=== PATIENT | male | born 1960 | race Caucasian/White ===

== ENCOUNTER 2019-08-03 06:42 | Inpatient (IN) ==
[2019-07-24 15:59] LABS: Appearance,Urine CLEAR; Bilirubin,Urine NEG (NEG); Color,Urine YELLOW; Glucose,Urine (UA) NEGATIVE (NEG); Ketones,Urine NEG (NEG); Leukocyte Esterase,Urine NEG /uL (NEG); Nitrate,Urine NEG (NEG); Protein,Urine NEG (NEG); Specific Gravity,Urine 1.023 (1.000-1.035); Urine Blood NEG mg/dL (<0.03); Urobilinogen,Urine NEG (NEG)
[2019-07-24 16:20] LABS: Basophils # (Auto) 0 K/mcL (0.0-0.3); Basophils % (Auto) 0.5 % (0.0-2.0); Eosinophils # (Auto) 0.1 K/mcL (0.0-0.7); Eosinophils % (Auto) 1.8 % (0.0-7.0); Granulocytes % (Auto) 66.1 % (38.0-78.0); Hematocrit 39.7 % (41.0-55.0); Hemoglobin 13.6 g/dL (13.5-16.5); Lymphocytes # (Auto) 1.6 K/mcL (1.5-4.8); Lymphocytes % (Auto) 23.1 % (15.5-49.0); Mean Cell Volume 95.7 fL (80.0-100.0); Mean Corpuscular HGB Conc 34.2 g/dL (31.0-36.0); Mean Platelet Volume 8.7 fL (7.4-10.4); Monocytes # (Auto) 0.6 K/mcL (0.1-0.9); Monocytes % (Auto) 8.5 % (1.0-12.0); Platelet Count 239 K/mcL (140-440); RBC 4.15 M/mcL (4.50-5.90); Red Cell Distribution Width 13.7 % (11.5-14.5); WBC 7.1 K/mcL (4.5-11.0)
[2019-07-24 16:27] LABS: Prothrombin Time 13.1 sec (11.9-14.5)
[2019-07-24 16:35] LABS: Blood Urea Nitrogen 17 mg/dl (6-20); Calcium 8.9 mg/dl (8.6-10.4); Carbon Dioxide 24 mmol/L (22-30); Chloride 105 mmol/L (96-108); Glomerular Filtration Rate 73; Glucose 104 mg/dL (70-105)
[~2019-08-03 06:42] MED LIST: 0.9 % SODIUM CHLORIDE 9 ML, KETOROLAC 30 MG, ROPIVACAINE HCL/PF 49.5 ML, EPINEPHrine 0.... IJ SCH; ACETAMINOPHEN 500 MG TABLET PO SCH; CELECOXIB 200 MG CAPSULE PO SCH; IPRATROPIUM/ALBUTEROL 3 ML AMPUL.NEB NEB PRN; PREGABALIN 75 MG CAPSULE PO SCH; SCOPOLAMINE 1 PATCH PATCH TOPICAL PRN; ceFAZolin 3 GM in DEXTROSE 5% IN WATER 50 ML IV SCH; oxyCODONE 10 MG TAB.ER.12H PO SCH
[2019-08-03] MEDS ORDERED: GENTAMICIN SULFATE 800 MG/20 ML VIAL IR ONE (08:42)
[2019-08-03] MEDS ORDERED: ONDANSETRON 4 MG/2 ML VIAL IV ONE (10:15)
[2019-08-03] MEDS ORDERED: ROPIVACAINE HCL/PF 20 ML VIAL IJ ONE (10:15)
[2019-08-03] MEDS ORDERED: MIDAZOLAM 5 MG/5 ML VIAL IV ONE (10:15)
[2019-08-03] MEDS ORDERED: LIDOCAINE HCL/PF 100 MG/5 ML SYRINGE IV ONE (10:15)
[2019-08-03] MEDS ORDERED: KETAMINE 100 MG/ML ML IV ONE (10:15)
[2019-08-03] MEDS ORDERED: GLYCOPYRROLATE 0.2 MG/ML VIAL IV ONE (10:15)
[2019-08-03] MEDS ORDERED: DEXAMETHASONE 10 MG/ML VIAL IV ONE (10:15)
[2019-08-03] MEDS ORDERED: fentaNYL 250 MCG/5 ML VIAL IV ONE (10:15)
[2019-08-03] MEDS ORDERED: PROPOFOL 200 MG/20 ML VIAL IV ONE (10:15)
[2019-08-03] MEDS ORDERED: TRANEXAMIC ACID 1,000 MG/10 ML VIAL IV ONE (10:15)
[2019-08-03] MEDS ORDERED: ATROPINE SULFATE 0.4 MG/ML VIAL IV PRN (11:18)
[2019-08-03] MEDS ORDERED: FLUMAZENIL 0.1 MG/ML ML IV PRN (11:18)
[2019-08-03] MEDS ORDERED: MEPERIDINE 25 MG/ML SYRINGE IV PRN (11:18)
[2019-08-03] MEDS ORDERED: METHOCARBAMOL 1,000 MG/10 ML VIAL IV PRN (11:18)
[2019-08-03] MEDS ORDERED: diphenhydrAMINE 50 MG/ML VIAL IV PRN (11:18)
[2019-08-03] MEDS ORDERED: ONDANSETRON 4 MG/2 ML VIAL IV PRN ×2 (11:18→11:44)
[2019-08-03] MEDS ORDERED: ePHEDrine 50 MG/ML AMPUL IV PRN (11:18)
[2019-08-03] MEDS ORDERED: METOPROLOL TARTRATE 5 MG/5 ML VIAL IV PRN (11:18)
[2019-08-03] MEDS ORDERED: NALOXONE HCL 0.4 MG/ML VIAL IV PRN (11:18)
[2019-08-03] MEDS ORDERED: IPRATROPIUM/ALBUTEROL 3 ML AMPUL.NEB NEB PRN (11:18)
[2019-08-03] MEDS ORDERED: HYDROmorphone 2 MG/ML VIAL IV PRN (11:18)
[2019-08-03] MEDS ORDERED: LACTATED RINGERS 1,000 ML IV SCH (11:30)
--- NOTE | 2019-08-03 11:43 | Brief Operative Note ---
Date of procedure: 08/03/19 Pre-op diagnosis: Right knee djd severe Post-op diagnosis: same Procedure: Right knee tka with shalom robot Grafts/Implants: Yes Anesthesia: NELSON Surgeon: Henry Ponce Orthodontic Technician: Salazar Gu Estimated blood loss (cc): 50 Tourniquet Time (Minutes): 45 Specimens Removed/Pathology: none sent Condition: stable Disposition: PACU
[2019-08-03] MEDS ORDERED: BENZOCAINE/MENTHOL 1 LOZENGE PO PRN (11:44)
[2019-08-03] MEDS ORDERED: BISACODYL 10 MG SUPP.RECT PR PRN (11:44)
[2019-08-03] MEDS ORDERED: FLEETS ADULT ENEMA PR PRN (11:44)
[2019-08-03] MEDS ORDERED: TRANEXAMIC ACID 1,000 MG/10 ML VIAL IV SCH (11:44)
[2019-08-03] MEDS ORDERED: ACETAMINOPHEN 325 MG TABLET PO PRN (11:44)
[2019-08-03] MEDS ORDERED: MAGNESIUM HYDROXIDE 30 ML ORAL.SUSP PO PRN (11:44)
[2019-08-03] MEDS ORDERED: POLYETHYLENE GLYCOL 3350 17 GM PACKET PO PRN (11:44)
[2019-08-03] MEDS ORDERED: 0.45 % SODIUM CHLORIDE 1,000 ML IV SCH (11:45)
[2019-08-03] MEDS ORDERED: ACETAMINOPHEN 500 MG TABLET PO PRN (11:46)
[2019-08-03] MEDS ORDERED: IBUPROFEN 200 MG TABLET PO PRN (11:46)
[2019-08-03] MEDS: fentaNYL 100 MCG/2 ML VIAL IV PRN ×4 (12:16→12:38)
[2019-08-03] MEDS: KETOROLAC 15 MG/ML VIAL IV SCH ×2 (13:14→18:06)
[2019-08-03] MEDS: 0.9 % SODIUM CHLORIDE 10 ML SYRINGE IV SCH ×2 (13:15→20:42)
--- NOTE | 2019-08-03 13:43 | XRay Report ---
CLINICAL INFORMATION: Post-Op Total Knee COMPARISON: None. FINDINGS: Total knee prostheses is anatomically aligned. No osseous abnormality. Periarticular gas and soft tissue swelling is seen as expected IMPRESSION: Negative Interpreted and Authenticated by: Romero Davila 08/03/19
[2019-08-03] MEDS: LACTATED RINGERS 1,000 ML IV SCH ×2 (15:19→22:02)
[2019-08-03] MEDS: HYDROcodone/APAP 10/325MG TABLET PO PRN ×4 (15:34→21:48)
[2019-08-03] MEDS: ceFAZolin 1 GM VIAL IV SCH (17:35)
[2019-08-03] MEDS: DOCUSATE SODIUM 100 MG CAPSULE PO SCH (20:41)
[2019-08-03] MEDS: ASPIRIN 325 MG ENTERIC COATED TABLET PO SCH (20:41)
[2019-08-03] MEDS: SENNOSIDES 1 TABLET PO SCH (20:41)
[2019-08-04] MEDS: KETOROLAC 15 MG/ML VIAL IV SCH ×5 (00:07→23:43)
[2019-08-04] MEDS: HYDROmorphone 2 MG/ML VIAL IV PRN ×2 (00:18→23:41)
[2019-08-04] MEDS: TEMAZEPAM 15 MG CAPSULE PO PRN ×2 (00:19→21:22)
[2019-08-04] MEDS: HYDROcodone/APAP 10/325MG TABLET PO PRN ×5 (02:11→21:21)
[2019-08-04] MEDS: ceFAZolin 1 GM VIAL IV SCH (02:11)
[2019-08-04] MEDS: 0.9 % SODIUM CHLORIDE 10 ML SYRINGE IV SCH ×3 (06:07→22:54)
--- NOTE | 2019-08-04 07:32 | Orthopedic Progress Note ---
Subjective Patient information: Note initiated : 08/04/19 at 7:31 am Service Date, if different from initiated Date: [] Patient: Mynor Ahumada 59 y/o M admitted on 08/03/19 for Right Total Knee Arthroplasty Nahid. Chief Complaint: [Pt is stable this morning on post operative day 1 without any significant concerns or complaints. Patients vital signs have remained stable. Patients dressing is dry and is grossly intact from a neurovascular and motor standpoint. Patients 10 point ROS is otherwise negative. ] Objective Vital signs: Vital Signs Temp Pulse Resp BP BP Pulse Ox 08/04/19 03:12 97.9 F 62 22 121/68 93 08/03/19 23:46 97.7 F 82 24 H 138/85 94 08/03/19 19:09 97.5 F 77 24 H 120/79 94 08/03/19 16:35 82 120/71 93 08/03/19 16:22 84 123/63 93 08/03/19 16:00 74 96 08/03/19 15:22 80 162/94 95 08/03/19 14:53 87 128/80 95 08/03/19 14:22 98 H 136/75 97 08/03/19 14:07 77 141/86 98 08/03/19 13:52 83 140/88 98 08/03/19 13:35 69 18 137/88 95 08/03/19 13:20 72 143/93 93 08/03/19 13:15 74 20 98 08/03/19 13:00 88 148/63 08/03/19 12:45 97.5 F 74 20 159/94 98 08/03/19 12:30 97.3 F 71 15 180/85 95 08/03/19 12:15 97.4 F 74 12 176/101 94 08/03/19 12:10 93 H 24 H 163/82 97 08/03/19 12:05 73 18 143/77 96 08/03/19 12:00 89 17 150/53 95 08/03/19 11:58 98.1 F 14 181/89 97 08/03/19 08:00 97.5 F 68 22 135/84 95 Intake and Output 08/03/19 08/04/19 08/04/19 21:59 05:59 13:59 Intake Total 1090 700 Output Total 500 Balance 1090 200 Intake: IV 50 Ancef 3 gm In Dextrose 5% in 50 Water 50 ml @ 100 mls/hr IV PREOP SHY Rx#:[id number] Oral 1040 700 Output: Urine Catheter Amount 500 Straight 500 Other: Meal Lunch Percent of Meal Consumed 100% Urine Appearance Clear Straight Clear Urine Color Tea Colored Straight Dark Mari Urine Odor Normal Straight Normal Weight 296 lb Intake & Output: Intake & Output 08/03/19 08/04/19 08/04/19 21:59 05:59 13:59 Intake Total 1090 700 Output Total 500 Balance 1090 200 Weight 296 lb Intake: IV 50 Ancef 3 gm In Dextrose 5% in 50 Water 50 ml @ 100 mls/hr IV PREOP SHY Rx#:[id number] Oral 1040 700 Output: Urine Catheter Amount 500 Straight 500 Other: Meal Lunch Percent of Meal Consumed 100% Urine Appearance Clear Straight Clear Urine Color Tea Colored Straight Dark Mari Urine Odor Normal Straight Normal Incision: Yes healing Incision clean and dry: Yes Dressing: Yes clean Weight bearing status: full Neurological exam IM: Yes motor sensory intact, Yes neurovascular intact Extremities exam IM: Yes Foot pink and warm, Yes neurovascular intact - Labs CBC & BMP: 08/04/19 04:55 07/24/19 Unknown Labs: Orthopedic Labs 07/24/19 13:43 PT 13.1 INR 1.0 APTT 33 08/04/19 07/24/19 04:55 13:43 Hgb 13.6 Hct 34.2 L 39.7 L Assessment and Plan (1) Hx of total knee arthroplasty The patient has been educated regarding dressing care, Physical Therapy recommendations, home exercises, restrictions, and follow up appointments. The patient has had all necessary DME prescribed. The patient has remained relatively stable during their hospital course. Status: Acute
--- NOTE | 2019-08-04 07:35 | Discharge Summary ---
Ortho Discharge - TKA - Patient Instructions Diet: Regular Diet Activity: activity as tolerated, weight bearing as tolerated Total Knee Protocol: For Total Knee: Start ROM MARLEY with stationary bike or rocking chair. Work on gaining full extension of knee. Posterior dislocation precautions provided. Hip abductor strengthening and gait training instructions provided. Apply Cryocuff as instructed. Dressing Care: Aquacel Ag - leave on for 5 days (not really aquacel but leave intact until ortho f/u) - Problem Maintenance (1) Hx of total knee arthroplasty Status: Acute - Follow Up Plan Follow Up Appointments: Salazar Gu PA-C [Physician Fashion Stylist] - 08/20/19 1:00 pm Disposition: Xfer Inpatient Rehab Fac Prognosis: Good Rehab Potential: Good I certify that the patient requires SNF services: Yes Overall status at discharge: patient is progressing back to baseline - Orders For Discharge Prescriptions: Docusate Sodium [Colace] 100 mg PO BID #60 cap Transmission Status: Pending to [facility] Aspirin [Ecotrin] 325 mg PO BID #60 tab.ec Transmission Status: Pending to [facility] HYDROcodone/APAP 10/325MG [Barry 10-325Mg] 1 - 2 tab PO Q4HP PRN #75 tab PRN Reason: Pain Level 3-6 Prescription Printed
--- NOTE | 2019-08-04 07:42 | Operative Note ---
DATE OF OPERATION: 08/03/2019 PREOPERATIVE DIAGNOSIS: Right knee degenerative arthritis, severe. POSTOPERATIVE DIAGNOSIS: Right knee degenerative arthritis, severe. PROCEDURE: Right total knee arthroplasty using Nahid robot. INDICATIONS: The patient had failed all conservative care. X-ray shows severe arthritis with bone on bone findings; the patient had failed injections, and anti-inflammatories. SURGEON: Henry Ponce MD TRACK HOE OPERATOR: Salazar Gu PA-C. This provider's expertise and technical skill were required throughout the case. The TAMMI assisted with preoperative coordination, intraoperative retraction, wound closure, dressing and splint application, as well as postoperative documentation and care coordination. ANESTHESIA: General LMA anesthesia. COMPLICATIONS: None. ESTIMATED BLOOD LOSS: 50 mL SPECIMENS REMOVED: None. CONDITION: Stable. DISPOSITION: To PACU. DESCRIPTION OF PROCEDURE: The patient was brought to the operating room and put to sleep with general anesthesia. Once asleep, the patient had the right knee sterilely prepped and draped in the usual sterile fashion. Once sterilely prepped and draped, a timeout was performed confirming the operative site by initials, consent form and x-rays. The leg was exsanguinated and we inflated the tourniquet to 275 pounds of pressure. Once done, we were able to make a midline incision, midvastus approach performed. We exposed the joint. At this point, we then placed pins above and below the knee, registered center of hip rotation, brought the robot in and after being perfectly balanced these cuts were made. This balanced very nicely. We irrigated thoroughly and checked the implant. We resurfaced the patella as well, making a 38 mm patella. This brought the total thickness back to normal. We irrigated thoroughly and cemented the components into place. The poly most appropriate for thickness was used. This gained full extension, though the patient did have a small contracture preoperatively. We irrigated thoroughly and closed the midvastus approach with #1 Stratafix x2, closed the skin with a Stratafix and adhesive closure. The patient tolerated this well. TOURNIQUET TIME: Approximately 45 minutes. RBH:lencho Job ID: [id number] Doc ID: [id number] Henry Ponce MD
[2019-08-04] MEDS: ASPIRIN 325 MG ENTERIC COATED TABLET PO SCH ×2 (07:51→21:22)
[2019-08-04] MEDS: LOSARTAN 50 MG TABLET PO SCH (07:51)
[2019-08-04] MEDS: FERROUS SULFATE 325 MG TABLET PO SCH (07:51)
[2019-08-04] MEDS: DOCUSATE SODIUM 100 MG CAPSULE PO SCH ×2 (07:51→21:22)
[2019-08-04] MEDS ORDERED: NON FORMULARY MEDICATION 1 DOSE MISCELL (Aspirin [Adult Low Dose Aspirin Ec] 81 MG) PO SCH (09:00)
[2019-08-04] MEDS: LACTATED RINGERS 1,000 ML IV SCH ×2 (09:22→17:08)
[2019-08-04] MEDS ORDERED: FLU VACC QS2019-20(6MOS UP)/PF 60 MCG/0.5 ML SYRINGE IM ONE (10:00)
[2019-08-04] MEDS ORDERED: PHENAZOPYRIDINE 200 MG TABLET PO PRN (19:00)
[2019-08-04] MEDS ORDERED: TAMSULOSIN 0.4 MG CAPSULE PO SCH (21:00)
[2019-08-04] MEDS: SENNOSIDES 1 TABLET PO SCH (21:21)
[2019-08-05] MEDS: HYDROcodone/APAP 10/325MG TABLET PO PRN ×3 (00:16→10:08)
[2019-08-05] MEDS: LACTATED RINGERS 1,000 ML IV SCH ×2 (03:24→15:30)
[2019-08-05] MEDS: KETOROLAC 15 MG/ML VIAL IV SCH (05:43)
[2019-08-05] MEDS: LOSARTAN 50 MG TABLET PO SCH (10:10)
[2019-08-05] MEDS: ASPIRIN 325 MG ENTERIC COATED TABLET PO SCH (10:11)
[2019-08-05] MEDS: DOCUSATE SODIUM 100 MG CAPSULE PO SCH (10:11)
[2019-08-05] MEDS: FERROUS SULFATE 325 MG TABLET PO SCH (10:11)
[2019-08-05] MEDS: 0.9 % SODIUM CHLORIDE 10 ML SYRINGE IV SCH (15:29)
== END 2019-08-05 12:45 | DRG 470 ==
LOC: MEDSUR 06:42
PROVIDERS: ADMIT Orthopaedic Surgery; ATTEND Orthopaedic Surgery